=== PATIENT | female | born 1940 | race Caucasian/White ===

== ENCOUNTER 2017-04-13 01:05 | Emergency (ER) | payer MEDICAID ==
[~2017-04-13] VITALS: Ht 162.6 cm; Wt 86.2 kg
[2017-04-13 01:58] LABS: Basophils # (auto) 0.1 uL; Basophils % (auto) 1.1 % (0.0-2.0); Eosinophils # (auto) 0.2 uL; Eosinophils % (auto) 2.1 % (0.0-7.0); Hematocrit 40.6 % (36.0-46.0); Hemoglobin 13.2 g/dL (12.2-16.2); Lymphocytes # (auto) 3.4 uL; Mean Corpuscular Hemoglobin 27.9 pg (28.0-32.0); Mean Corpuscular Hgb Conc. 32.4 g/dL (32.0-36.0); Mean Corpuscular Volume 86.2 fL (80.0-100.0); Monocytes # (auto) 0.9 uL; Monocytes % (auto) 8.8 % (0.0-12.0); Neutrophils # (auto) 5.2 uL; Nucleated Red Blood Cells % 0.1 %; Platelet Count (auto) 419 10^3/uL (140-450); Red Blood Cells 4.71 10^6/uL (4.0-5.20); White Blood Cell 9.8 10^3/uL (4.4-10.8)
[2017-04-13 02:10] LABS: INR 0.84 (0.9-1.15); Partial Thromboplastin Time 26.1 sec (22.64-33.71); Prothrombin Time 9.1 sec (9.37-12.3)
[2017-04-13 02:12] LABS: Alanine Aminotransferase 25 U/L (13-56); Albumin 3.5 g/dL (3.4-5.0); Anion Gap 7 (5-15); Aspartate Aminotransferase 17 U/L (15-37); Blood Urea Nitrogen 12 mg/dL (7-18); Carbon Dioxide 30 mmol/L (21-32); Chloride 105 mmol/L (98-107); GFR African American 125 mL/min; GFR Non-African American 104 mL/min; Glucose 167 mg/dL (74-106); Magnesium 2.3 mg/dL (1.6-2.6); Potassium 4.4 mmol/L (3.5-5.1); Sodium 142 mmol/L (136-145)
[2017-04-13 02:17] LABS: Alkaline Phosphatase 99 U/L (45-117); Bilirubin, Total 0.4 mg/dL (0.2-1.0); Total Protein 7.6 g/dL (6.4-8.2)
[2017-04-13 08:13] VITALS: BP 142/52
[2017-04-13 08:36] LABS: Urine Bacteria NONE SEEN /hpf (None Seen); Urine Blood Negative /uL (Negative); Urine Mucus FEW (None Seen); Urine Specific Gravity 1.017 (1.001-1.035); Urine WBC 8 /hpf (0 - 5)
== END 2017-04-13 08:49 | disposition home or self-care (01) ==
LOC: ER 01:05
DX: K29.00 Acute gastritis without bleeding (principal); K21.9 Gastro-esophageal reflux disease without esophagitis; E11.9 Type 2 diabetes mellitus without complications; I10 Essential (primary) hypertension; E78.00 Pure hypercholesterolemia, unspecified; Z90.49 Acquired absence of other specified parts of digestive tract
CPT/HCPCS: 36415; 71045; 80053; 81001; 83735; 83880; 84484; 85025; 85610; 85730; 93005; 94761

== ENCOUNTER 2019-11-03 03:58 | Emergency (ER) | payer MEDICAID ==
[~2019-11-03] VITALS: Ht 142.2 cm; Wt 86.2 kg
[2019-11-03 04:15] VITALS: BP 147/72
[2019-11-03] MEDS ORDERED: diphenhdrAMINE HCL 25 MG CAP PO ONE ×2 (04:28→04:45)
== END 2019-11-03 04:36 | disposition home or self-care (01) ==
LOC: ER 03:58
DX: R53.83 Other fatigue (principal); E11.9 Type 2 diabetes mellitus without complications; I10 Essential (primary) hypertension; E78.5 Hyperlipidemia, unspecified; Z90.49 Acquired absence of other specified parts of digestive tract; Z88.6 Allergy status to analgesic agent; Z88.0 Allergy status to penicillin

== ENCOUNTER 2019-11-03 13:03 | Inpatient (IN) | payer MEDICAID ==
[~2019-11-03] VITALS: Ht 157.5 cm; Wt 86.4 kg
[2019-11-03 13:51] LABS: Basophils # (auto) 0.1 10 ^3/uL (0-0.2); Eosinophils # (auto) 0.2 10 ^3/uL (0-0.8)
[2019-11-03 13:53] LABS: Basophils % (auto) 1.5 % (0.0-2.0); Eosinophils % (auto) 2.4 % (0.0-7.0); Hematocrit 36.8 % (36.0-46.0); Lymphocytes # (auto) 2.3 10 ^3/uL (0.4-5.4); Lymphocytes % (auto) 25.5 % (10.0-50.0); Mean Corpuscular Hemoglobin 27.2 pg (28.0-32.0); Mean Corpuscular Hgb Conc. 32.7 g/dL (32.0-36.0); Mean Corpuscular Volume 83.2 fL (80.0-100.0); Monocytes % (auto) 10.5 % (0.0-12.0); Neutrophils # (auto) 5.5 10 ^3/uL (1.6-8.6); Neutrophils % (auto) 60.1 % (37.0-80.0); Nucleated Red Blood Cells % 0.2 %; Platelet Count (auto) 371 10^3/uL (140-450); Red Blood Cells 4.42 10^6/uL (4.0-5.20); Red Cell Distribution Width 17.1 % (11.8-14.3); White Blood Cell 9.1 10^3/uL (4.4-10.8)
[2019-11-03 14:00] LABS: INR 0.92 (0.9-1.15); Partial Thromboplastin Time 25.8 sec (23.0-31.2)
[2019-11-03 14:02] LABS: Albumin 3.6 g/dL (3.4-5.0); Potassium 3.7 mmol/L (3.5-5.1)
[2019-11-03 14:04] LABS: BUN/Creatinine Ratio 16.7; Bilirubin, Total 0.9 mg/dL (0.2-1.0); Total Protein 7.4 g/dL (6.4-8.2)
[2019-11-03 16:04] LABS: Magnesium 2.3 mg/dL (1.6-2.6)
[2019-11-03] MEDS ORDERED: MORPHINE SULF INJ 2 MG/ML SYRINGE 1ML IV PRN (18:15)
[2019-11-03] MEDS ORDERED: NITROGLYCERIN 0.4 MG SL TAB SL PRN (18:15)
[2019-11-03] MEDS ORDERED: LACTULOSE 20Gm/30ML SOLN PO PRN (19:00)
[2019-11-03] MEDS ORDERED: ALBUTEROL SULF 2.5 MG/0.5ML(0.5%) NEB SOLN NEB PRN (19:00)
[2019-11-03] MEDS ORDERED: DEXTROSE (50%) 50ML SYRG IV PRN (19:00)
[2019-11-03 20:24] VITALS: BP 154/77
--- NOTE | 2019-11-03 20:25 | NUR ---
Telemetry admit from ER Patient admitted to Telemetry unit. Patient oriented to primary RN, unit, room, bed, and unit policies regarding patient care and visiting hours. Patient now on continuous telemetry monitoring, tele box # [id number] and telemetry reading on arrival to unit is sinus rhythm. Patient weighed by bedscale and encouraged to call if they need something. All questions and concerns addressed, patient verbalized understanding. Safety precautions maintained bed is in lowest position and locked, bed rails 2x. Call light and bedside table are within reach.
[2019-11-03] MEDS: FUROSEMIDE 40 MG/4 ML VIAL IV SCH (21:32)
[2019-11-03] MEDS: levoFLOXacin 500MG 100 ML IV SCH (21:33)
[2019-11-03] MEDS: POTASSIUM CHL 20 Meq TABLET PO SCH (21:33)
[2019-11-03] MEDS: ENOXAPARIN SOD 40 MG/0.4 ML SYRINGE SC SCH (21:33)
[2019-11-03] MEDS: ACCU-CHEK COMFORT CURVE STRIP VI SCH (21:42)
[2019-11-03] MEDS: InsuLIN REG 1unit/0.01ml Soln (100units/ml) SC SCH (21:42)
[2019-11-03] MEDS: SODIUM CHLOR 0.9% PF (SALINE LOCK) 10ML VIAL/SYR IV SCH (21:43)
[2019-11-03 21:47] VITALS: BP 126/60
[2019-11-03 22:00] VITALS: BP 103/60
[2019-11-03] MEDS: CARVEDILOL 3.125 MG TAB PO SCH (22:03)
[2019-11-03] MEDS: TEMAZEPAM 15 MG CAP PO PRN (22:03)
[2019-11-03] MEDS: CLINDAMYCIN 600MG IV 50 ML IV SCH (22:04)
[2019-11-03] MEDS: HYDROcodone-ACET 10/325MG TAB PO PRN (22:29)
--- NOTE | 2019-11-04 | NUR ---
Respiratory note: PT REFUSED MED NEB TX AT THIS TIME. PT STARTED CRYING STATING HER BACK WAS IN PAIN. ASSISTED PT TO THE RESTROOM AND BACK TO HER BED. RN AWARE. PT'S HR 75, RR 18, SPO2 99% ON RA. NO S/S OF ANY RESPIRATORY DISTRESS NOTED. ADVISED PT TO CALL IF TX IS NEEDED.
[2019-11-04 03:13] LABS: Urine Bacteria NONE SEEN /hpf (None Seen); Urine Blood Negative /uL (Negative); Urine Hyaline Cast FEW /lpf (0 - 2); Urine Specific Gravity 1.009 (1.001-1.035); Urine WBC <1 /hpf (0 - 5)
[2019-11-04] MEDS: HYDROcodone-ACET 10/325MG TAB PO PRN ×2 (04:25→11:21)
[2019-11-04 05:00] VITALS: BP 142/70
[2019-11-04] MEDS: SODIUM CHLOR 0.9% PF (SALINE LOCK) 10ML VIAL/SYR IV SCH ×3 (05:52→21:52)
[2019-11-04] MEDS: CLINDAMYCIN 600MG IV 50 ML IV SCH ×3 (05:53→21:52)
[2019-11-04] MEDS: ALBUTEROL SULF 2.5 MG/0.5ML(0.5%) NEB SOLN NEB SCH ×4 (06:49→19:14)
[2019-11-04] MEDS: ACCU-CHEK COMFORT CURVE STRIP VI SCH ×4 (06:54→21:54)
[2019-11-04] MEDS: InsuLIN REG 1unit/0.01ml Soln (100units/ml) SC SCH ×4 (06:54→22:00)
--- NOTE | 2019-11-04 07:12 | NUR ---
End of Shift Note Endorsed care to dayshift RN. At this time patient has no s/s of distress or SOB.
--- NOTE | 2019-11-04 07:56 | NUR ---
Opening Shift Note Assumed care of patient, awake and alert. No S/S of distress/SOB or pain. Instructed on POC and to call for assist PRN, will continue to monitor for changes Q1hr and PRN.
[2019-11-04 09:00] VITALS: BP 132/71
[2019-11-04] MEDS: CARVEDILOL 3.125 MG TAB PO SCH ×2 (09:20→21:54)
[2019-11-04] MEDS: POTASSIUM CHL 20 Meq TABLET PO SCH (09:20)
[2019-11-04] MEDS: FUROSEMIDE 40 MG/4 ML VIAL IV SCH (09:20)
[2019-11-04] MEDS: ENALAPRIL MALEATE 2.5 MG TAB PO SCH (09:21)
[2019-11-04] MEDS ORDERED: ASPirin 81 mg TAB PO SCH (10:00)
[2019-11-04] MEDS ORDERED: ENOXAPARIN SOD 40 MG/0.4 ML SYRINGE SC SCH (10:00)
--- NOTE | 2019-11-04 11:21 | NUR ---
pt compalined of lower back pain prn medication given, ice pack applied to right upper arm
[2019-11-04] MEDS: MORPHINE SULF INJ 2 MG/ML SYRINGE 1ML IV PRN (13:04)
--- NOTE | 2019-11-04 13:20 | NUR ---
RT NOTE: PT REFUSED TX AT THIS TIME. NO SIGNS OF DISTRESS NOTED. SPO2 95 HR 72 RR 22. WILL CONTINUE TO MONITOR.
[2019-11-04 14:58] VITALS: BP 126/65
[2019-11-04 17:00] VITALS: BP 129/67
[2019-11-04] MEDS: ENOXAPARIN SOD 40 MG/0.4 ML SYRINGE SC SCH (17:16)
[2019-11-04] MEDS: levoFLOXacin 500MG 100 ML IV SCH (17:16)
--- NOTE | 2019-11-04 17:17 | NUR ---
pt refused lovenox "i dont want to get pokeed, please" pt refused antibiotic "just let me rest im sick" risk and benefit explained
[2019-11-04 21:57] VITALS: BP 136/73
[2019-11-05] MEDS: ALBUTEROL SULF 2.5 MG/0.5ML(0.5%) NEB SOLN NEB SCH ×4 (00:26→19:07)
--- NOTE | 2019-11-05 00:50 | NUR ---
This RN and TIFFANY John, both in pt's room after RT left room 2/2 pt's agitation. FORMING MACHINE OPERATOR had witnessed pt becoming agitated near end of RT tx and RT talking with pt. Pt stating she is too hot, RR increased. Pt strongly denies presence of pain. RN and TIFFANY spoke gently with her, provided cool damp cloths to back of neck and to forehead. Reminded pt to breathe through her nose. When pt becomes agitated, she mouth breathes. O2 replaced as this helps pt relax when agitated. Pt settled back against HOB in semi- Miner's position and began relaxed breathing, eyes closed.
[2019-11-05] MEDS: TEMAZEPAM 15 MG CAP PO PRN (01:47)
[2019-11-05 04:58] VITALS: BP 143/73
[2019-11-05] MEDS: SODIUM CHLOR 0.9% PF (SALINE LOCK) 10ML VIAL/SYR IV SCH ×3 (05:07→21:04)
[2019-11-05 05:14] LABS: Basophils # (auto) 0.1 10 ^3/uL (0-0.2); Basophils % (auto) 0.8 % (0.0-2.0); Eosinophils # (auto) 0.1 10 ^3/uL (0-0.8); Eosinophils % (auto) 1.1 % (0.0-7.0); Hematocrit 41.1 % (36.0-46.0); Hemoglobin 12.9 g/dL (12.2-16.2); Lymphocytes # (auto) 1.7 10 ^3/uL (0.4-5.4); Lymphocytes % (auto) 19.2 % (10.0-50.0); Mean Corpuscular Hemoglobin 26.4 pg (28.0-32.0); Mean Corpuscular Hgb Conc. 31.5 g/dL (32.0-36.0); Mean Corpuscular Volume 83.8 fL (80.0-100.0); Monocytes # (auto) 0.6 10 ^3/uL (0-1.3); Monocytes % (auto) 6.9 % (0.0-12.0); Neutrophils # (auto) 6.2 10 ^3/uL (1.6-8.6); Nucleated Red Blood Cells % 0.2 %; Platelet Count (auto) 383 10^3/uL (140-450); Red Blood Cells 4.91 10^6/uL (4.0-5.20); Red Cell Distribution Width 17.2 % (11.8-14.3); White Blood Cell 8.7 10^3/uL (4.4-10.8)
[2019-11-05 05:30] LABS: BUN/Creatinine Ratio 26.5; Calcium 8.8 mg/dL (8.5-10.1); Potassium 3.8 mmol/L (3.5-5.1)
[2019-11-05] MEDS: InsuLIN REG 1unit/0.01ml Soln (100units/ml) SC SCH ×4 (06:11→22:00)
[2019-11-05] MEDS: CLINDAMYCIN 600MG IV 50 ML IV SCH ×3 (06:11→21:03)
[2019-11-05] MEDS: ACCU-CHEK COMFORT CURVE STRIP VI SCH ×4 (06:12→22:00)
--- NOTE | 2019-11-05 06:48 | NUR ---
Pt refusing mask for RT tx after initially refusing RT completely. She state she "had marijuana last night." Now RN asked if pt had marijuana at home. Pt states no that "the man nurse in the emergency room, no in the room for the breathing..." gave her marijuana and it smelled very good. RN again reassured her marijuana is not given as a treatment here in this hospital. Pt now stating she is in pain in her hands, wrists, across her head, down the side of her face. She states she will accept pain med.
--- NOTE | 2019-11-05 08:00 | NUR ---
RECEIVED PATIENT ALERT AND ORIENTED X4, NOT IN DISTRESS, CLEAR LS IN BILATERAL LUNG LOBES, RR=18, DEEP BREATHING AND COUGHING ENCOURAGED, VERBALIZED AND DEMONSTRATED WELL, SR ON TELE MONITOR HEART R=76, DENIED CHEST PAIN AND SOB, ABDOMEN SOFT WITH ACTIVE BS, TOLERATED 100% OF PROVIDED BREAK FAST TRAY, LAST BM=11/03/19 REPORTED, SKIN INTACT WARM TO TOUCH, RADIAL AND PEDAL PULSES PALPABLE, OUT OF BED TO THE CHAIR WITH ASSISTANCE, TOLERATED WELL, SITTING ON THE CHAIR, CALL LIGHT ON REACH, WILL CONTINUE MONITORING.
[2019-11-05] MEDS ORDERED: TOLT2CAP7 PO (09:23)
[2019-11-05] MEDS ORDERED: GABA-339 PO (09:23)
[2019-11-05] MEDS ORDERED: METF-370 PO (09:23)
[2019-11-05] MEDS ORDERED: GLIM-5 PO (09:23)
[2019-11-05] MEDS ORDERED: CARV3.1240 PO (09:23)
[2019-11-05] MEDS ORDERED: LISI-275 PO (09:23)
[2019-11-05] MEDS ORDERED: ALOG1TAB2 PO (09:23)
[2019-11-05] MEDS ORDERED: ASPI-543 PO (09:23)
[2019-11-05] MEDS ORDERED: ATO40T PO (09:23)
[2019-11-05] MEDS ORDERED: OME20GT GT (09:23)
[2019-11-05 09:40] VITALS: BP 128/70
[2019-11-05] MEDS: FUROSEMIDE 40 MG/4 ML VIAL IV SCH (09:52)
[2019-11-05] MEDS: POTASSIUM CHL 20 Meq TABLET PO SCH (09:52)
[2019-11-05] MEDS: CARVEDILOL 3.125 MG TAB PO SCH ×2 (09:52→21:04)
[2019-11-05] MEDS: ENALAPRIL MALEATE 2.5 MG TAB PO SCH (09:53)
[2019-11-05] MEDS: MORPHINE SULF INJ 2 MG/ML SYRINGE 1ML IV PRN (09:53)
[2019-11-05] MEDS ORDERED: PANTOPRAZOLE 40 MG TAB PO ONE (11:15)
[2019-11-05] MEDS: SUCRALFATE 1 GM TAB PO SCH ×3 (11:46→21:04)
[2019-11-05] MEDS: ONDANSETRON HCL 4 MG/2 ML VIAL IV PRN (11:48)
[2019-11-05] MEDS: ACETAMINOPHEN 325 MG TAB PO PRN (11:49)
[2019-11-05 13:21] VITALS: BP 123/71
--- NOTE | 2019-11-05 14:06 | NUR ---
HOME MEDICATION RECONCILIATION LIST WAS UPDATED, SON WAS CONTACTED ON [phone] AGUILAR REQUESTED, NOT IN DISTRESS, RESTING ON BED, WILL CONTINUE MONITORING.
[2019-11-05 15:26] LABS: Cholesterol 120 mg/dL (< 200)
[2019-11-05 15:29] LABS: HDL Cholesterol 33 mg/dL (40-59); LDL Cholesterol 83 mg/dL (< 100); Triglycerides 108 mg/dL (< 150)
[2019-11-05 16:38] VITALS: BP 152/78
[2019-11-05] MEDS: HYDROcodone-ACET 10/325MG TAB PO PRN ×2 (17:12→21:06)
[2019-11-05] MEDS: levoFLOXacin 500MG 100 ML IV SCH (17:12)
[2019-11-05] MEDS: ENOXAPARIN SOD 40 MG/0.4 ML SYRINGE SC SCH (17:29)
--- NOTE | 2019-11-05 18:26 | NUR ---
Out of bed and sitting on the chair at this moment, not in distress, will continue monitoring.
[2019-11-05] MEDS: ASPirin-EC 81 mg tab PO SCH (18:47)
--- NOTE | 2019-11-05 19:26 | NUR ---
REPORT WAS GIVEN TO THE SODA DIALYZER RN.
[2019-11-05 21:58] VITALS: BP 140/94
[2019-11-06] MEDS: TEMAZEPAM 15 MG CAP PO PRN (00:14)
[2019-11-06] MEDS: ALBUTEROL SULF 2.5 MG/0.5ML(0.5%) NEB SOLN NEB SCH ×4 (00:17→19:22)
--- NOTE | 2019-11-06 00:59 | NUR ---
PIV leaking fluid; dc'd by this RN. Explained to pt will need to insert new IV; pt VU. Gallo, RN, resource nurse, able to start PIV to R ant forearm with 22g cath; pt fermín well.
[2019-11-06] MEDS: SODIUM CHLOR 0.9% PF (SALINE LOCK) 10ML VIAL/SYR IV SCH ×3 (04:57→22:09)
[2019-11-06 04:58] VITALS: BP 144/96
[2019-11-06] MEDS: ACCU-CHEK COMFORT CURVE STRIP VI SCH ×4 (05:56→22:09)
[2019-11-06] MEDS: CLINDAMYCIN 600MG IV 50 ML IV SCH (05:56)
[2019-11-06] MEDS: SUCRALFATE 1 GM TAB PO SCH ×4 (05:56→22:09)
[2019-11-06 06:17] LABS: Basophils # (auto) 0.1 10 ^3/uL (0-0.2); Eosinophils # (auto) 0.2 10 ^3/uL (0-0.8); Eosinophils % (auto) 1.9 % (0.0-7.0); Hematocrit 37.8 % (36.0-46.0); Hemoglobin 12.1 g/dL (12.2-16.2); Lymphocytes # (auto) 2.3 10 ^3/uL (0.4-5.4); Mean Corpuscular Hemoglobin 27.2 pg (28.0-32.0); Mean Corpuscular Hgb Conc. 32.1 g/dL (32.0-36.0); Mean Corpuscular Volume 84.7 fL (80.0-100.0); Monocytes # (auto) 0.8 10 ^3/uL (0-1.3); Monocytes % (auto) 9.5 % (0.0-12.0); Neutrophils # (auto) 4.7 10 ^3/uL (1.6-8.6); Neutrophils % (auto) 58.6 % (37.0-80.0); Nucleated Red Blood Cells % 0.2 %; Platelet Count (auto) 373 10^3/uL (140-450); Red Blood Cells 4.46 10^6/uL (4.0-5.20); Red Cell Distribution Width 17.1 % (11.8-14.3); White Blood Cell 8.1 10^3/uL (4.4-10.8)
[2019-11-06] MEDS: HYDROcodone-ACET 10/325MG TAB PO PRN ×3 (06:17→22:21)
[2019-11-06] MEDS: InsuLIN REG 1unit/0.01ml Soln (100units/ml) SC SCH ×4 (06:21→22:26)
[2019-11-06 06:29] LABS: Calcium 8.5 mg/dL (8.5-10.1); Potassium 3.6 mmol/L (3.5-5.1)
[2019-11-06 06:33] LABS: BUN/Creatinine Ratio 19.4
--- NOTE | 2019-11-06 08:00 | NUR ---
RECEIVED PATIENT ALERT AND ORIENTED X4, NOT IN DISTRESS, CLEAR LS IN BILATERAL UPPER AND DIMINISHED IN LOWER LUNG LOBES, RR=18, DEEP BREATHING AND COUGHING ENCOURAGED, VERBALIZED AND DEMONSTRATED WELL, SR ON TELE MONITOR HEART R=67, DENIED CHEST PAIN AND SOB, ABDOMEN SOFT WITH ACTIVE BS, LAST BM=11/05/19 REPORTED, SKIN INTACT WARM TO TOUCH, RADIAL AND PEDAL PULSES PALPABLE, RESTING ON BED, HEAD OF BED ELEVATED, BED ON LOWER POSITION, RAILS UP X2, CALL LIGHT ON REACH, WILL CONTINUE MONITORING.
[2019-11-06 09:00] VITALS: BP 111/64
[2019-11-06] MEDS: FUROSEMIDE 40 MG/4 ML VIAL IV SCH (09:34)
[2019-11-06] MEDS: CARVEDILOL 3.125 MG TAB PO SCH ×2 (09:34→22:15)
[2019-11-06] MEDS: POTASSIUM CHL 20 Meq TABLET PO SCH (09:35)
[2019-11-06] MEDS: ASPirin-EC 81 mg tab PO SCH (09:35)
[2019-11-06] MEDS: PANTOPRAZOLE 40 MG TAB PO SCH (09:35)
[2019-11-06] MEDS: ENALAPRIL MALEATE 2.5 MG TAB PO SCH (09:35)
[2019-11-06] MEDS: ONDANSETRON HCL 4 MG/2 ML VIAL IV PRN ×2 (09:36→17:26)
[2019-11-06] MEDS: MORPHINE SULF INJ 2 MG/ML SYRINGE 1ML IV PRN (09:36)
--- NOTE | 2019-11-06 12:26 | NUR ---
PT REFUSED 1200 MED NEB TX. PT EATING LUNCH. NO S/S OF RESPIRATORY DISTRESS. WILL CONTINUE TO MONITOR.
--- NOTE | 2019-11-06 12:42 | NUR ---
RESTING ON BED, C/O NAUSEA, DR. JALEN CHÁVEZ NOTIFIED, PENDING ENDOSCOPY REPORTED, SON WAS CONTACTED BY DR. KYLER RAO AND UPDATED REPORTED, NOT IN DISTRESS, SITTING ON BED AND EATING AT THIS MOMENT, WILL CONTINUE MONITORING.
[2019-11-06 13:00] VITALS: BP 113/63
[2019-11-06] MEDS ORDERED: FLORASTOR (S. BOULARDII) 250 MG CAP PO ONE (13:51)
[2019-11-06] MEDS ORDERED: FLUCONAZOLE 100 MG TAB PO ONE (14:00)
[2019-11-06] MEDS: CLINDAMYCIN HCL 150 MG CAP PO SCH ×2 (14:14→22:09)
[2019-11-06 17:07] VITALS: BP 102/58
[2019-11-06] MEDS: ENOXAPARIN SOD 40 MG/0.4 ML SYRINGE SC SCH (17:27)
[2019-11-06 19:12] VITALS: BP 102/58
--- NOTE | 2019-11-06 19:23 | NUR ---
REPORT WAS GIVEN TO THE BELT GLASS SANDER RN.
[2019-11-06 22:00] VITALS: BP 120/65
[2019-11-07] MEDS: ALBUTEROL SULF 2.5 MG/0.5ML(0.5%) NEB SOLN NEB SCH ×4 (00:28→18:58)
[2019-11-07] MEDS: CLINDAMYCIN HCL 150 MG CAP PO SCH (05:12)
[2019-11-07] MEDS: SODIUM CHLOR 0.9% PF (SALINE LOCK) 10ML VIAL/SYR IV SCH ×3 (05:12→21:43)
[2019-11-07] MEDS: ACCU-CHEK COMFORT CURVE STRIP VI SCH ×4 (05:16→21:34)
[2019-11-07] MEDS: InsuLIN REG 1unit/0.01ml Soln (100units/ml) SC SCH ×4 (05:16→21:34)
[2019-11-07] MEDS: SUCRALFATE 1 GM TAB PO SCH ×4 (06:07→21:43)
--- NOTE | 2019-11-07 07:48 | NUR ---
PT. REFUSED MN. TX. AT THIS TIME, PT. IS SITTING UP IN A CHAIR NEXT TO THE WINDOW EATING HER BREAKFAST. PT. STATES SHE HAS A HEADACHE AND DOESN'T WANT THE TX. RIGHT NOW. NO RESP. DISTRESS NOTED, HR=83,RR=18,QK20=75-81% ON RA, WILL CHECK WITH PT. AT NEXT SCHEDULED TIME. NO TX. GIVEN.
[2019-11-07 09:00] VITALS: BP 137/70
[2019-11-07] MEDS: FUROSEMIDE 40 MG/4 ML VIAL IV SCH (09:48)
[2019-11-07] MEDS: POTASSIUM CHL 20 Meq TABLET PO SCH (09:49)
[2019-11-07] MEDS: ACETAMINOPHEN 325 MG TAB PO PRN (09:49)
[2019-11-07] MEDS: FLUCONAZOLE 100 MG TAB PO SCH (09:49)
[2019-11-07] MEDS: PANTOPRAZOLE 40 MG TAB PO SCH (09:50)
[2019-11-07] MEDS: ASPirin-EC 81 mg tab PO SCH (09:50)
[2019-11-07] MEDS: CARVEDILOL 3.125 MG TAB PO SCH ×2 (09:50→22:23)
[2019-11-07] MEDS: ENALAPRIL MALEATE 2.5 MG TAB PO SCH (09:50)
[2019-11-07] MEDS ORDERED: FLORASTOR (S. BOULARDII) 250 MG CAP PO SCH (10:00)
--- NOTE | 2019-11-07 11:18 | NUR ---
Assessment Patient is a 79-year-old female who is alert and oriented. Patient ask me to speak to her son Brad . Assessment was completed with Brad. Per Brad prior to admission patient live home with her and functioned independently. Per Brad patient can care for her own ADLs. Per Brad patient does not have any medical equipment or home oxygen. Per Brad patient will return home to her prior living arrangements post discharge and he will transport patient home. Advised Brad there is a social service for home health safety evaluation, physical therapy, medication management and vitals. Informed Brad clinical information will be faxed to a contracted agency with health plan. Informed Brad he has a right to participate in all discharge planning. Brad verbalized understanding and agreed to discharge plan home. Faxed clinical information to [facility] and [facility]. Per Abi with [facility] patient has been accepted and service to start within 24-48hrs upon d/c [phone]. Obtain authorization from [facility] [id number]. Addendum: 11/07/19 at 1119 by DUKE SAENZ Amended: Links added.
[2019-11-07] MEDS: ONDANSETRON HCL 4 MG/2 ML VIAL IV PRN (12:23)
[2019-11-07] MEDS: MORPHINE SULF INJ 2 MG/ML SYRINGE 1ML IV PRN (12:25)
--- NOTE | 2019-11-07 12:37 | NUR ---
Est energy needs [id number] kcal (18-20 kcal/kg BW 88.5kg) Est protein needs 50-75g (1-1.5g/kg IBW 50kg) will reassess prn. Addendum: 11/07/19 at [address] Amended: Links added.
[2019-11-07 13:00] VITALS: BP 115/65
[2019-11-07] MEDS: ENOXAPARIN SOD 40 MG/0.4 ML SYRINGE SC SCH (18:37)
--- NOTE | 2019-11-07 18:54 | NUR ---
RT NOTE PT WAS SEEN BY RT FOR HHN TX. PT WAS IN RESTROOM UPON RT ARRIVAL ON ROOM AIR. PT TOLERATES HHN WELL VIA MOUTH PIECE. NO ADVERSE REACTION NOTED. PT SATS WERE 89-90 ON ROOM AIR, PLACED PT ON 2L NASAL CANNULA POST TX. CONT ORDERED Addendum: 11/07/19 at 1915 by Drea Jarrett RT Amended: Links added.
--- NOTE | 2019-11-07 21:00 | NUR ---
Spoke with patient and patient's son, Brad, regarding the EGD, both are aware of EGD procedure tomorrow and okay with it. Explained to the patient the need to be NPO after midnight, she verbalized understanding.
[2019-11-07] MEDS: TEMAZEPAM 15 MG CAP PO PRN ×2 (21:46)
[2019-11-07 22:00] VITALS: BP 145/71
--- NOTE | 2019-11-08 00:13 | NUR ---
RT NOTE PT WAS SEEN BY RT FOR HHN TX. PT TOLERATES WELL VIA MASK. NO ADVERSE REACTION NOTED.PT PLACED ON 2L POST TX. PT COMPLAINS OF PAIN, CAMRYN TREADWELL NOTIFIED. CONT ORDERED Addendum: 11/08/19 at 0030 by Drea Jarrett RT Amended: Links added.
[2019-11-08] MEDS: ALBUTEROL SULF 2.5 MG/0.5ML(0.5%) NEB SOLN NEB SCH ×5 (00:15→23:25)
[2019-11-08] MEDS: ONDANSETRON HCL 4 MG/2 ML VIAL IV PRN ×2 (00:45→10:28)
[2019-11-08] MEDS: MORPHINE SULF INJ 2 MG/ML SYRINGE 1ML IV PRN ×2 (00:45→21:17)
[2019-11-08 05:00] VITALS: BP 128/75
[2019-11-08] MEDS: InsuLIN REG 1unit/0.01ml Soln (100units/ml) SC SCH ×4 (06:43→21:54)
[2019-11-08] MEDS: ACCU-CHEK COMFORT CURVE STRIP VI SCH ×4 (06:43→21:18)
[2019-11-08] MEDS: SUCRALFATE 1 GM TAB PO SCH ×4 (06:43→21:17)
[2019-11-08] MEDS: SODIUM CHLOR 0.9% PF (SALINE LOCK) 10ML VIAL/SYR IV SCH ×3 (06:43→21:54)
[2019-11-08 07:19] LABS: INR 0.97 (0.9-1.15); Partial Thromboplastin Time 27.1 sec (23.0-31.2)
[2019-11-08 07:30] LABS: BUN/Creatinine Ratio 24.2; Calcium 9.1 mg/dL (8.5-10.1); Potassium 4.2 mmol/L (3.5-5.1)
--- NOTE | 2019-11-08 07:30 | NUR ---
Endorsed care to Darlene COWAN.
--- NOTE | 2019-11-08 07:30 | NUR ---
Opening Shift Note Assumed care of patient, awake and alert. No S/S of distress/SOB or pain. Instructed on POC and to call for assist PRN, will continue to monitor for changes Q1hr and PRN. Bed is locked and in lowest position. Call light within reach.
[2019-11-08 09:06] VITALS: BP 131/70
[2019-11-08] MEDS: ASPirin-EC 81 mg tab PO SCH (10:00)
[2019-11-08] MEDS: PANTOPRAZOLE 40 MG TAB PO SCH (10:00)
[2019-11-08] MEDS: ENALAPRIL MALEATE 2.5 MG TAB PO SCH (10:00)
[2019-11-08] MEDS: FLUCONAZOLE 100 MG TAB PO SCH (10:00)
[2019-11-08] MEDS: CARVEDILOL 3.125 MG TAB PO SCH ×2 (10:00→21:18)
[2019-11-08] MEDS ORDERED: LIDOCAINE VISCOUS 2% 15ML UD ONE (10:11)
[2019-11-08] MEDS ORDERED: ONDANSETRON HCL 4 MG/2 ML VIAL ONE (10:21)
[2019-11-08 13:00] VITALS: BP 136/79
--- NOTE | 2019-11-08 13:21 | NUR ---
PATIENT OFF UNIT TO PRE-OP FOR EGD PROCEDURE WITH DR. CHÁVEZ. PATIENT WAS TRANSPORTED IN [facility] WITH NO SIGNS OF DISTRESS OR SOB. WILL AWAIT PATIENT RETURN.
[2019-11-08] MEDS: MIDAZOLAM HCL 5 MG/ML-1ML VIAL ONE ×2 (14:50→14:51)
[2019-11-08] MEDS: fentaNYL CITRATE 100 MCG/2 ML VL ONE ×2 (14:50→14:51)
[2019-11-08 17:25] VITALS: BP 135/78
[2019-11-08] MEDS: ENOXAPARIN SOD 40 MG/0.4 ML SYRINGE SC SCH (18:12)
[2019-11-08 22:00] VITALS: BP 139/71
[2019-11-08] MEDS: HYDROcodone-ACET 10/325MG TAB PO PRN (23:46)
[2019-11-08] MEDS: TEMAZEPAM 15 MG CAP PO PRN (23:46)
[2019-11-09 05:00] VITALS: BP 152/76
[2019-11-09 05:29] LABS: Basophils # (auto) 0.1 10 ^3/uL (0-0.2); Basophils % (auto) 1.4 % (0.0-2.0); Eosinophils # (auto) 0.1 10 ^3/uL (0-0.8); Hematocrit 37.4 % (36.0-46.0); Hemoglobin 11.9 g/dL (12.2-16.2); Lymphocytes # (auto) 2.5 10 ^3/uL (0.4-5.4); Mean Corpuscular Hemoglobin 26.7 pg (28.0-32.0); Mean Corpuscular Hgb Conc. 31.8 g/dL (32.0-36.0); Mean Corpuscular Volume 84.1 fL (80.0-100.0); Monocytes # (auto) 0.8 10 ^3/uL (0-1.3); Monocytes % (auto) 11.3 % (0.0-12.0); Neutrophils # (auto) 3.3 10 ^3/uL (1.6-8.6); Neutrophils % (auto) 48.3 % (37.0-80.0); Nucleated Red Blood Cells % 0.1 %; Platelet Count (auto) 363 10^3/uL (140-450); Red Blood Cells 4.45 10^6/uL (4.0-5.20); Red Cell Distribution Width 17.4 % (11.8-14.3); White Blood Cell 6.8 10^3/uL (4.4-10.8)
[2019-11-09] MEDS: SODIUM CHLOR 0.9% PF (SALINE LOCK) 10ML VIAL/SYR IV SCH ×2 (05:41→14:17)
[2019-11-09 05:44] LABS: Potassium 4.1 mmol/L (3.5-5.1)
[2019-11-09 05:47] LABS: BUN/Creatinine Ratio 21.4
[2019-11-09] MEDS: ACCU-CHEK COMFORT CURVE STRIP VI SCH ×2 (06:10→11:34)
[2019-11-09] MEDS: InsuLIN REG 1unit/0.01ml Soln (100units/ml) SC SCH ×2 (06:12→11:36)
[2019-11-09] MEDS: SUCRALFATE 1 GM TAB PO SCH ×2 (06:13→11:34)
--- NOTE | 2019-11-09 07:19 | NUR ---
Care report given to David Colon, patient is resting no distress.
[2019-11-09] MEDS: ALBUTEROL SULF 2.5 MG/0.5ML(0.5%) NEB SOLN NEB SCH ×2 (07:36→12:00)
[2019-11-09 09:00] VITALS: BP 142/76
[2019-11-09] MEDS: ENALAPRIL MALEATE 2.5 MG TAB PO SCH (09:08)
[2019-11-09] MEDS: PANTOPRAZOLE 40 MG TAB PO SCH (09:09)
[2019-11-09] MEDS: FLUCONAZOLE 100 MG TAB PO SCH (09:09)
[2019-11-09] MEDS: ASPirin-EC 81 mg tab PO SCH (09:09)
[2019-11-09] MEDS: CARVEDILOL 3.125 MG TAB PO SCH (09:10)
--- NOTE | 2019-11-09 12:00 | NUR ---
Respiratory note: SCHEDULED 1200 NOT GIVEN, PT REFUSING TX AT THIS TIME. HR 86, RR 18, SPO2 92% ON ROOM AIR. PT DENIES SOB. NO S/S OF DISTRESS NOTED.
[2019-11-09 13:19] VITALS: BP 137/75
[2019-11-09 13:59] VITALS: BP 142/76
[2019-11-09 17:08] VITALS: BP 125/68
--- NOTE | 2019-11-09 17:37 | NUR ---
PATIENT DISCHARGE PAPERWORK TRANSLATED BY MOMO TO PATIENT DUE TO LANGUAGE BARRIER. PATIENT QUESTIONS AND CONCERNS ANSWERED. PATIENT GIVEN DISCHARGE AND PRESCRIPTION PAPERWORK. IV ON LEFT AC REMOVED, CATHETER INTACT WITH NO SIGNS OF INFECTION. 4X4 DRESSING AND TAPE APPLIED. PATIENT TOLERATED IV REMOVAL WELL WITH NO SIGNS OF DISTRESS OR PAIN. TELE BOX NUMBER [id number] REMOVED AND SENT TO TELEMONITOR ICU.
[2019-11-11 15:00] VITALS: BP 130/63
== END 2019-11-09 17:35 | disposition home or self-care (01) | DRG 194 ==
LOC: ER 13:03 → TELE 13:04 → TELE-WESTW 20:23
PROVIDERS: ADMIT Internal Medicine; ATTEND Internal Medicine
PROC: 0DB88ZX Excision of Small Intestine, Via Natural or Artificial Opening Endoscopic, Diagnostic (ICD-10-PCS; 2019-11-08)
PROC: 0DB68ZX Excision of Stomach, Via Natural or Artificial Opening Endoscopic, Diagnostic (ICD-10-PCS; principal; 2019-11-08 14:45)
DX: I11.0 Hypertensive heart disease with heart failure (principal); K29.00 Acute gastritis without bleeding; K22.10 Ulcer of esophagus without bleeding; L03.114 Cellulitis of left upper limb; E66.9 Obesity, unspecified; E78.5 Hyperlipidemia, unspecified; D64.9 Anemia, unspecified; E11.21 Type 2 diabetes mellitus with diabetic nephropathy; K44.9 Diaphragmatic hernia without obstruction or gangrene; G89.29 Other chronic pain; J45.909 Unspecified asthma, uncomplicated; K21.9 Gastro-esophageal reflux disease without esophagitis; Z79.84 Long term (current) use of oral hypoglycemic drugs; M54.9 Dorsalgia, unspecified; M19.90 Unspecified osteoarthritis, unspecified site; Z86.718 Personal history of other venous thrombosis and embolism; Z83.3 Family history of diabetes mellitus; Z88.0 Allergy status to penicillin; R06.03 Acute respiratory distress; I50.33 Acute on chronic diastolic (congestive) heart failure; T63.311A Toxic effect of venom of black widow spider, accidental (unintentional), initial encounter; Z68.33 Body mass index [BMI] 33.0-33.9, adult
CPT/HCPCS: 36415; 43239; 71045; 71046; 72128; 72131; 80048; 80053; 80061; 81001; 82550; 82962; 83036; 83735; 83880; 84443; 84484; 85025; 85610; 85652; 85730; 86850; 86900; 86901; 87070; 87077; 87081; 87186; 87205; 93005; 93306; 93970; 94640; 97110; 97116; 97530; G0378; J1815; J1956; J2250; J2405; J3490

== ENCOUNTER → 2020-01-02 | Outpatient (CLI) | payer MEDICAID ==
[~2020-01-02] MED LIST: ALOG1TAB2 PO; ATO40T PO; CARV3.1240 PO; GABA-339 PO; GLIM-5 PO; LISI-275 PO; METF-370 PO; OME20GT GT; TOLT2CAP7 PO
== END | disposition home or self-care (01) ==
LOC: Rad HDHVI 15:05
PROVIDERS: ATTEND Internal Medicine
DX: I07.1 Rheumatic tricuspid insufficiency (principal); E11.9 Type 2 diabetes mellitus without complications; R07.89 Other chest pain; E28.9 Ovarian dysfunction, unspecified
CPT/HCPCS: 93306

== ENCOUNTER → 2020-01-08 | Outpatient (CLI) | payer MEDICAID ==
[~2020-01-08] VITALS: Ht 157.5 cm; Wt 83.0 kg
[~2020-01-08] MED LIST changes: +ADENOSINE 90 MG/30 ML INJ IV ONE; +ADENOSINE IV ONE; +GIVE UN DILUTED IV ONE
== END | disposition home or self-care (01) ==
LOC: Rad HDHVI 14:00
PROVIDERS: ATTEND Internal Medicine
DX: I25.10 Atherosclerotic heart disease of native coronary artery without angina pectoris (principal); I10 Essential (primary) hypertension; E78.5 Hyperlipidemia, unspecified; E11.9 Type 2 diabetes mellitus without complications; R07.9 Chest pain, unspecified
CPT/HCPCS: 78452; 93005; 96374; 96375; A9500; J0153

== ENCOUNTER 2020-05-24 00:50 | Emergency (ER) | payer MEDICAID ==
[~2020-05-24] VITALS: Ht 175.3 cm; Wt 83.9 kg
[~2020-05-24 00:50] MED LIST changes: -ADENOSINE 90 MG/30 ML INJ IV ONE; -ADENOSINE IV ONE; -GIVE UN DILUTED IV ONE; +TOLT2CAP PO; -TOLT2CAP7 PO
[2020-05-24] MEDS ORDERED: ACETAMINOPHEN 325 MG TAB PO ONE (04:00)
[2020-05-24 06:00] VITALS: BP 127/76
== END 2020-05-24 06:23 | disposition home or self-care (01) ==
LOC: ER 00:51
DX: M79.89 Other specified soft tissue disorders (principal); E11.9 Type 2 diabetes mellitus without complications; E78.5 Hyperlipidemia, unspecified; I10 Essential (primary) hypertension; Z90.49 Acquired absence of other specified parts of digestive tract; Z88.0 Allergy status to penicillin; Z88.2 Allergy status to sulfonamides
CPT/HCPCS: 93971

== ENCOUNTER → 2020-12-22 | Outpatient (CLI) | payer MEDICARE, MEDICAID ==
[2020-12-22 11:26] LABS: Urine Blood Negative /uL (Negative); Urine Specific Gravity 1.009 (1.001-1.035)
[2020-12-22 11:38] LABS: Potassium 3.4 mmol/L (3.5-5.1)
[2020-12-22 11:46] LABS: Free T4 (Free Thyroxine) 1.18 ng/dL (0.89-1.76)
[2020-12-22 11:48] LABS: Albumin 3.3 g/dL (3.4-5.0); BUN/Creatinine Ratio 22.7; Bilirubin, Total 0.8 mg/dL (0.2-1.0); Calcium 9.3 mg/dL (8.5-10.1)
[2020-12-22 11:57] LABS: Basophils # (auto) 0.1 10 ^3/uL (0-0.2); Basophils % (auto) 0.8 % (0.0-2.0); Eosinophils # (auto) 0.1 10 ^3/uL (0-0.8); Eosinophils % (auto) 1.3 % (0.0-7.0); Hematocrit 38.7 % (36.0-46.0); Hemoglobin 12.9 g/dL (12.2-16.2); Lymphocytes % (auto) 22.4 % (10.0-50.0); Mean Corpuscular Hgb Conc. 33.4 g/dL (32.0-36.0); Monocytes # (auto) 0.6 10 ^3/uL (0-1.3); Monocytes % (auto) 7.1 % (0.0-12.0); Neutrophils # (auto) 6.2 10 ^3/uL (1.6-8.6); Neutrophils % (auto) 68.4 % (37.0-80.0); Red Cell Distribution Width 15.1 % (11.8-14.3)
== END | disposition home or self-care (01) ==
LOC: LAB 08:53
PROVIDERS: ATTEND Internal Medicine
DX: D51.3 Other dietary vitamin B12 deficiency anemia (principal); I10 Essential (primary) hypertension; E11.9 Type 2 diabetes mellitus without complications; E55.9 Vitamin D deficiency, unspecified; D64.9 Anemia, unspecified; R00.2 Palpitations; R53.1 Weakness; R30.0 Dysuria
CPT/HCPCS: 36415; 80053; 80061; 81003; 82306; 82607; 83036; 84439; 84443; 85025

== ENCOUNTER → 2021-06-22 | Outpatient (CLI) | payer MEDICARE, MEDICAID ==
[2021-06-22 10:58] VITALS: BP 106/62
[2021-06-22 11:23] VITALS: BP 111/58
== END | disposition home or self-care (01) ==
LOC: CHF HDHVI 10:52
PROVIDERS: ATTEND Internal Medicine
DX: I73.9 Peripheral vascular disease, unspecified (principal); I89.0 Lymphedema, not elsewhere classified
CPT/HCPCS: G0463

== ENCOUNTER → 2021-06-25 | Outpatient (CLI) | payer MEDICARE, MEDICAID ==
[2021-06-25 12:48] VITALS: BP 108/52
[2021-06-25 13:17] VITALS: BP 97/51
== END | disposition home or self-care (01) ==
LOC: CHF HDHVI 12:55
PROVIDERS: ATTEND Internal Medicine
DX: I89.0 Lymphedema, not elsewhere classified (principal); R60.0 Localized edema
CPT/HCPCS: G0463

== ENCOUNTER → 2022-04-13 | Outpatient (CLI) | payer MEDICARE, MEDICAID | END | disposition home or self-care (01) | LOC: Rad HDHVI 11:12 | PROVIDERS: ATTEND Internal Medicine | DX: I11.9 Hypertensive heart disease without heart failure (principal); R07.9 Chest pain, unspecified | CPT/HCPCS: 93306 ==

== ENCOUNTER → 2022-04-19 | Outpatient (CLI) | payer MEDICARE, MEDICAID ==
[~2022-04-19] VITALS: Ht 154.9 cm; Wt 85.3 kg
[~2022-04-19] MED LIST changes: +ADENOSINE 72 MG in GIVE UN-DILUTED 0 ML IV ONE; +ADENOSINE 90 MG/30 ML INJ IV ONE; +IOHEXOL 350 MG/ML 100ML IJ ONE
== END | disposition home or self-care (01) ==
LOC: Rad HDHVI 12:58
PROVIDERS: ATTEND Internal Medicine
DX: I25.10 Atherosclerotic heart disease of native coronary artery without angina pectoris (principal); E11.9 Type 2 diabetes mellitus without complications; I10 Essential (primary) hypertension; E78.5 Hyperlipidemia, unspecified; I87.2 Venous insufficiency (chronic) (peripheral); R42 Dizziness and giddiness; Z79.84 Long term (current) use of oral hypoglycemic drugs; Z79.899 Other long term (current) drug therapy
CPT/HCPCS: 78452; 93005; 96374; 96375; A9500; J0153

== ENCOUNTER 2022-07-07 04:41 | Inpatient (IN) | payer MEDICARE, MEDICAID ==
[~2022-07-07] VITALS: Ht 157.5 cm; Wt 88.0 kg
[~2022-07-07 04:41] MED LIST changes: -ADENOSINE 72 MG in GIVE UN-DILUTED 0 ML IV ONE; -ADENOSINE 90 MG/30 ML INJ IV ONE; -IOHEXOL 350 MG/ML 100ML IJ ONE
[2022-07-07 05:41] LABS: Albumin 3.3 g/dL (3.4-5.0); Calcium 8.7 mg/dL (8.5-10.1); Potassium 3.6 mmol/L (3.5-5.1)
[2022-07-07 05:45] LABS: BUN/Creatinine Ratio 23.5 (10.0-20.0); Bilirubin, Total 0.8 mg/dL (0.2-1.0); Total Protein 7.1 g/dL (6.4-8.2)
[2022-07-07 05:50] LABS: Basophils # (auto) 0.1 10 ^3/uL (0-0.2); Eosinophils # (auto) 0.3 10 ^3/uL (0-0.8); Hemoglobin 11.6 g/dL (12.2-16.2); Neutrophils # (auto) 5.3 10 ^3/uL (1.6-8.6); Nucleated Red Blood Cells % 0.1 %; White Blood Cell 8.8 10^3/uL (4.4-10.8)
[2022-07-07 05:52] LABS: Basophils % (auto) 0.8 % (0.0-2.0); Eosinophils % (auto) 2.9 % (0.0-7.0); Hematocrit 34.9 % (36.0-46.0); Lymphocytes # (auto) 2.3 10 ^3/uL (0.4-5.4); Lymphocytes % (auto) 26.3 % (10.0-50.0); Mean Corpuscular Hemoglobin 26.8 pg (28.0-32.0); Mean Corpuscular Hgb Conc. 33.2 g/dL (32.0-36.0); Mean Corpuscular Volume 80.7 fL (80.0-100.0); Monocytes # (auto) 0.9 10 ^3/uL (0-1.3); Monocytes % (auto) 9.9 % (0.0-12.0); Neutrophils % (auto) 60.1 % (37.0-80.0); Red Blood Cells 4.32 10^6/uL (4.0-5.20); Red Cell Distribution Width 16.2 % (11.8-14.3)
[2022-07-07 06:41] LABS: INR 0.92 (0.9-1.15); Partial Thromboplastin Time 33.9 sec (24.6-33.4)
[2022-07-07] MEDS ORDERED: DexAMETHasone SOD PHOS 10MG/1ML VIAL INJ IV ONE (11:15)
[2022-07-07] MEDS ORDERED: DEXTROSE (50%) 50ML SYRG IV PRN (12:30)
[2022-07-07 12:56] LABS: Urine Bacteria NONE SEEN /hpf (None Seen); Urine Blood Negative /uL (Negative); Urine Specific Gravity 1.008 (1.001-1.035); Urine WBC 1 /hpf (0 - 5)
[2022-07-07] MEDS ORDERED: GLIM-5 PO (13:01)
[2022-07-07] MEDS ORDERED: DULO20CA PO (13:07)
[2022-07-07] MEDS ORDERED: ZOLP5TAB5 PO (13:07)
[2022-07-07] MEDS ORDERED: RIVA20TA PO (13:07)
[2022-07-07] MEDS ORDERED: HYDR12.56 PO (13:07)
[2022-07-07] MEDS: ACETAMINOPHEN 325 MG TAB PO PRN ×2 (14:47→21:35)
[2022-07-07] MEDS: ACCU-CHEK COMFORT CURVE STRIP VI SCH ×2 (17:00→21:41)
[2022-07-07] MEDS: FUROSEMIDE 20 MG/2 ML VIAL IV SCH (17:39)
[2022-07-07] MEDS: RIVAROXABAN 20 MG TAB PO SCH (17:40)
[2022-07-07] MEDS: InsuLIN REG 1unit/0.01ml Soln (100units/ml) SC SCH ×2 (17:41→21:47)
[2022-07-07] MEDS: ATORVASTATIN 20 MG TAB PO SCH (21:34)
[2022-07-07] MEDS: CARVEDILOL 3.125 MG TAB PO SCH (21:35)
[2022-07-07 23:30] VITALS: BP 134/65
[2022-07-08] VITALS (8 sets, daily range): BP systolic 106–144; BP diastolic 43–68
[2022-07-08] MEDS ORDERED: OMEP-434 PO (01:53)
[2022-07-08] MEDS ORDERED: DULO1CAP5 PO (01:53)
[2022-07-08] MEDS ORDERED: CHOL20007 OR (02:16)
[2022-07-08] MEDS ORDERED: OMEG100062 PO (02:16)
[2022-07-08] MEDS ORDERED: CALC-440 PO (02:18)
[2022-07-08] MEDS: ACETAMINOPHEN 325 MG TAB PO PRN ×2 (05:42→14:17)
[2022-07-08] MEDS: FUROSEMIDE 20 MG/2 ML VIAL IV SCH ×2 (06:00→17:24)
[2022-07-08] MEDS: InsuLIN REG 1unit/0.01ml Soln (100units/ml) SC SCH ×4 (06:48→21:49)
[2022-07-08 06:54] LABS: Basophils # (auto) 0 10 ^3/uL (0-0.2); Eosinophils # (auto) 0 10 ^3/uL (0-0.8); Hemoglobin 11.3 g/dL (12.2-16.2); Lymphocytes # (auto) 1.2 10 ^3/uL (0.4-5.4); Lymphocytes % (auto) 10.7 % (10.0-50.0); Mean Corpuscular Volume 81.6 fL (80.0-100.0); Nucleated Red Blood Cells % 0.1 %
[2022-07-08 06:57] LABS: Basophils % (auto) 0.3 % (0.0-2.0); Hematocrit 34.8 % (36.0-46.0); Mean Corpuscular Hemoglobin 26.6 pg (28.0-32.0); Mean Corpuscular Hgb Conc. 32.6 g/dL (32.0-36.0); Monocytes # (auto) 0.4 10 ^3/uL (0-1.3); Monocytes % (auto) 3.7 % (0.0-12.0); Neutrophils # (auto) 9.6 10 ^3/uL (1.6-8.6); Neutrophils % (auto) 85.3 % (37.0-80.0); Red Blood Cells 4.26 10^6/uL (4.0-5.20); Red Cell Distribution Width 16.6 % (11.8-14.3); White Blood Cell 11.2 10^3/uL (4.4-10.8)
[2022-07-08] MEDS: ACCU-CHEK COMFORT CURVE STRIP VI SCH ×4 (07:11→22:00)
[2022-07-08 07:23] LABS: Albumin 3.2 g/dL (3.4-5.0); BUN/Creatinine Ratio 27.4 (10.0-20.0); Potassium 3.8 mmol/L (3.5-5.1)
[2022-07-08 07:28] LABS: Bilirubin, Total 0.8 mg/dL (0.2-1.0); Total Protein 6.9 g/dL (6.4-8.2)
[2022-07-08] MEDS ORDERED: ENOXAPARIN SOD 40 MG/0.4 ML SYRINGE SC SCH (10:00)
[2022-07-08] MEDS ORDERED: ASPirin 81 mg TAB PO SCH (10:00)
[2022-07-08] MEDS: LISINOPRIL 5 MG TAB PO SCH (11:43)
[2022-07-08] MEDS: CARVEDILOL 3.125 MG TAB PO SCH ×2 (11:43→22:00)
[2022-07-08] MEDS: PANTOPRAZOLE 40 MG/10 ML VIAL INJ IV SCH (11:43)
[2022-07-08] MEDS: RIVAROXABAN 20 MG TAB PO SCH (17:24)
[2022-07-08] MEDS ORDERED: ALBUTEROL SULF 2.5 MG/0.5ML(0.5%) NEB SOLN NEB PRN (17:45)
[2022-07-08] MEDS: ATORVASTATIN 20 MG TAB PO SCH (21:53)
[2022-07-09 00:36] VITALS: BP 109/43
[2022-07-09 05:00] VITALS: BP 106/49
[2022-07-09] MEDS: InsuLIN REG 1unit/0.01ml Soln (100units/ml) SC SCH ×3 (06:27→17:16)
[2022-07-09] MEDS: FUROSEMIDE 20 MG/2 ML VIAL IV SCH ×2 (06:29→17:37)
[2022-07-09] MEDS: ACCU-CHEK COMFORT CURVE STRIP VI SCH ×3 (06:44→17:11)
[2022-07-09 07:10] LABS: Eosinophils # (auto) 0.1 10 ^3/uL (0-0.8); Hemoglobin 11.8 g/dL (12.2-16.2); Monocytes # (auto) 0.8 10 ^3/uL (0-1.3); Nucleated Red Blood Cells % 0.1 %; Red Cell Distribution Width 16.4 % (11.8-14.3)
[2022-07-09 07:13] LABS: Basophils # (auto) 0.2 10 ^3/uL (0-0.2); Basophils % (auto) 1.4 % (0.0-2.0); Eosinophils % (auto) 0.5 % (0.0-7.0); Hematocrit 35.5 % (36.0-46.0); Lymphocytes # (auto) 3.5 10 ^3/uL (0.4-5.4); Lymphocytes % (auto) 29.3 % (10.0-50.0); Mean Corpuscular Hemoglobin 26.2 pg (28.0-32.0); Mean Corpuscular Hgb Conc. 33.2 g/dL (32.0-36.0); Mean Corpuscular Volume 78.9 fL (80.0-100.0); Monocytes % (auto) 6.8 % (0.0-12.0); Neutrophils # (auto) 7.4 10 ^3/uL (1.6-8.6)
[2022-07-09 07:34] LABS: BUN/Creatinine Ratio 38.6 (10.0-20.0); Calcium 8.8 mg/dL (8.5-10.1); Magnesium 2.3 mg/dL (1.6-2.6); Potassium 3.2 mmol/L (3.5-5.1)
[2022-07-09 08:00] VITALS: BP 113/63
[2022-07-09] MEDS ORDERED: FUROSEMIDE 20 MG/2 ML VIAL IV SCH (10:00)
[2022-07-09] MEDS: PANTOPRAZOLE 40 MG/10 ML VIAL INJ IV SCH (10:02)
[2022-07-09] MEDS: CARVEDILOL 3.125 MG TAB PO SCH (10:05)
[2022-07-09] MEDS: LISINOPRIL 5 MG TAB PO SCH (10:05)
[2022-07-09] MEDS ORDERED: AZITTAB PO (14:28)
[2022-07-09] MEDS ORDERED: CYANOCOBALAMIN (B-12) 1000 MCG/1 ML VIAL IM ONE (14:30)
[2022-07-09] MEDS ORDERED: POTASSIUM CHL 20 Meq TABLET PO ONE (14:30)
[2022-07-09 15:55] VITALS: BP 112/62
[2022-07-09] MEDS: RIVAROXABAN 20 MG TAB PO SCH (17:37)
== END 2022-07-09 17:55 | disposition home or self-care (01) | DRG 193 ==
LOC: ER 04:41 → TELE 12:39 → TELE-WESTW 23:59
PROVIDERS: ADMIT Nurse Practitioner Family; ATTEND Internal Medicine
DX: J18.0 Bronchopneumonia, unspecified organism (principal); I50.43 Acute on chronic combined systolic (congestive) and diastolic (congestive) heart failure; J44.1 Chronic obstructive pulmonary disease with (acute) exacerbation; I11.0 Hypertensive heart disease with heart failure; Z20.822 Contact with and (suspected) exposure to COVID-19; D50.0 Iron deficiency anemia secondary to blood loss (chronic); E11.21 Type 2 diabetes mellitus with diabetic nephropathy; E11.40 Type 2 diabetes mellitus with diabetic neuropathy, unspecified; K44.9 Diaphragmatic hernia without obstruction or gangrene; E11.65 Type 2 diabetes mellitus with hyperglycemia; E66.01 Morbid (severe) obesity due to excess calories; E78.5 Hyperlipidemia, unspecified; Z68.35 Body mass index [BMI] 35.0-35.9, adult; Z88.0 Allergy status to penicillin; Z88.1 Allergy status to other antibiotic agents; Z88.6 Allergy status to analgesic agent; Z90.49 Acquired absence of other specified parts of digestive tract
CPT/HCPCS: 36415; 36600; 71045; 71250; 80048; 80053; 81001; 82306; 82607; 82805; 82962; 83036; 83605; 83735; 83880; 84443; 84484; 85025; 85379; 85610; 85730; 87040; 87426; 93005; 96374; C9113; G0378; J1100; J1815